=== PATIENT | male | born 1965 | race Hispanic/Latino ===

== ENCOUNTER → 2022-12-07 | Day surgery (SDC) | payer MEDICARE ==
[~2022-12-07] MED LIST: ALTOPREV40 MG PO; ASPIRIN81 MG PO; FENTANYL CITRATE/PF 100MCG/2 ML INJ ONE; GLYBURIDE5 MG PO; LACTATED RINGER'S 1,000 ML ONE; LIDOCAINE HCL 2% LOCAL INJ 5 ML SDV VIAL INJ ONE; LISINOPRIL10 MG PO; METAMUCIL FIBE3.4 GM PO; METFORMIN HCL850 MG PO; MIDAZOLAM HCL 2 MG/2 ML VIAL ONE; MOUNJARO5 MG/0.5 M; PROBIOTIC GUMMIE PO; PROPOFOL IV EMULSION 10 MG/ML 20 ML VIAL ONE; STOOL SOFTENER50 MG; TYLENOL EXTRA500 MG PO; ULTRAM 50MG50 MG PO; VITAMIN C 500500 MG PO; ZINC PO; [UNRECOGNIZED DRUG - OTHER]
[2022-12-07 12:16] VITALS: BP 108/60
== END | disposition home or self-care (01) ==
LOC: OR 08:14 → EDBD 09:00
PROVIDERS: ATTEND Internal Medicine Gastroenterology
DX: K29.70 Gastritis, unspecified, without bleeding (principal); D12.3 Benign neoplasm of transverse colon; D12.4 Benign neoplasm of descending colon; Q40.8 Other specified congenital malformations of upper alimentary tract; K20.90 Esophagitis, unspecified without bleeding; K57.30 Diverticulosis of large intestine without perforation or abscess without bleeding; K64.8 Other hemorrhoids; Z71.3 Dietary counseling and surveillance; E11.9 Type 2 diabetes mellitus without complications; I10 Essential (primary) hypertension; Z71.89 Other specified counseling; E78.00 Pure hypercholesterolemia, unspecified; Z01.810 Encounter for preprocedural cardiovascular examination; Z79.84 Long term (current) use of oral hypoglycemic drugs; Z79.85 Long-term (current) use of injectable non-insulin antidiabetic drugs; Z79.82 Long term (current) use of aspirin; Z79.899 Other long term (current) drug therapy; Z68.42 Body mass index [BMI] 45.0-49.9, adult; Z86.16 Personal history of COVID-19
CPT/HCPCS: 36415; 43239; 45385; 82948; 93005; C9113; J2001; J2250; J2704; J3010; J7121; 45378; 45380